=== PATIENT | female | born 1945 | race Hispanic/Latino ===

== ENCOUNTER 2018-11-13 14:15 | Emergency (ER) | payer MEDICARE ==
--- NOTE | 2018-11-13 15:09 | Emergency Department Report ---
ED CPR HPI - General Chief Complaint: Cardiac Arrest/CPR Stated Complaint: CARDIAC ARREST Source: EMS Mode of arrival: Stretcher Limitations: Other - History of Present Illness Initial Comments: This is a 73-year-old female who suffered a cardiac arrest at home. Her tells me on later counseling that she was indeed DO NOT RESUSCITATE. In any case she is transported by EMS after unsuccessful resuscitation. The patient was last seen alive more than a half hour prior to medic arrival. She was found in asystole with no signs of life. She was intubated and received ACLS medications. She had no return of spontaneous circulation or any electrical activity. She arrived at this facility in asystole. MD Complaint: found unresponsive, stopped breathing -: minute(s) (probably greater than 30) Place: home Bystander CPR Performed: No ROSC in the Field: No Associated Injuries: No Treatments Prior to Arrival: intubation, epinephrine mgs #, atropine mgs # - Related Data Home Medications Medication Instructions Recorded Confirmed Last Taken Aspirin [Aspirin TAB] 325 mg PO QDAY 02/28/16 02/28/16 Unknown Atorvastatin Calcium [Lipitor] 20 mg PO QHS 02/28/16 02/28/16 Unknown Fenofibrate Nanocrystallized 48 mg PO DAILY 02/28/16 02/28/16 Unknown [Fenofibrate] Gabapentin [Neurontin] 300 mg PO DAILY PRN 02/28/16 02/28/16 Unknown Insulin Lispro Prot/Lispro 22 units SQ QAM 02/28/16 02/28/16 Unknown [HumaLOG Mix 75/25 Vial] Insulin Lispro Prot/Lispro 42 units SQ QPM 02/28/16 02/28/16 Unknown [HumaLOG Mix 75/25 Vial] Metoprolol Tartrate 50 mg PO DAILY 02/28/16 02/28/16 Unknown Ranitidine HCl [Zantac] 2 tab PO DAILY 02/28/16 02/28/16 Unknown Previous Rx's Medication Instructions Recorded Last Taken Type Famotidine [Pepcid] 20 mg PO BID #60 tablet 03/01/16 Unknown Rx Lisinopril [Zestril TAB] 10 mg PO QDAY #30 tablet 03/01/16 Unknown Rx Allergies Allergy/AdvReac Type Severity Reaction Status Date / Time clopidogrel bisulfate AdvReac Rash Verified 07/21/15 14:50 [From Plavix] ED Review of Systems ROS: Stated complaint: CARDIAC ARREST Other details as noted in HPI Comment: Unobtainable due to pts medical conditions ED Past Medical Hx - Past Medical History Previous Medical History?: Yes Hx Hypertension: Yes Hx CVA: Yes Hx Heart Attack/AMI: Yes Hx Diabetes: Yes Hx GERD: Yes Hx Arthritis: Yes Additional medical history: high cholestrol - Surgical History Past Surgical History?: Yes Hx Coronary Stent: Yes (triple bypass) - Social History Smoking Status: Current Every Day Smoker - Medications Home Medications: Home Medications Medication Instructions Recorded Confirmed Last Taken Type Aspirin [Aspirin TAB] 325 mg PO QDAY 02/28/16 02/28/16 Unknown History Atorvastatin Calcium [Lipitor] 20 mg PO QHS 02/28/16 02/28/16 Unknown History Fenofibrate Nanocrystallized 48 mg PO DAILY 02/28/16 02/28/16 Unknown History [Fenofibrate] Gabapentin [Neurontin] 300 mg PO DAILY PRN 02/28/16 02/28/16 Unknown History Insulin Lispro Prot/Lispro 22 units SQ QAM 02/28/16 02/28/16 Unknown History [HumaLOG Mix 75/25 Vial] Insulin Lispro Prot/Lispro 42 units SQ QPM 02/28/16 02/28/16 Unknown History [HumaLOG Mix 75/25 Vial] Metoprolol Tartrate 50 mg PO DAILY 02/28/16 02/28/16 Unknown History Ranitidine HCl [Zantac] 2 tab PO DAILY 02/28/16 02/28/16 Unknown History Famotidine [Pepcid] 20 mg PO BID #60 tablet 03/01/16 Unknown Rx Lisinopril [Zestril TAB] 10 mg PO QDAY #30 tablet 03/01/16 Unknown Rx ED Physical Exam - General Limitations: Other General appearance: other (extremely pale) - Head Head exam: Present: atraumatic - Neck Neck exam: Present: normal inspection - Respiratory Respiratory exam: Present: normal lung sounds bilaterally (with Ambu bag assist) - Cardiovascular Cardiovascular Exam: Present: other (asystole) - GI/Abdominal GI/Abdominal exam: Absent: soft, distended - Extremities Exam Extremities exam: Present: other (amputation) - Back Exam Back exam: Present: other (not visualized) - Neurological Exam Neurological exam: Present: other (GCS of 3) ED Course - Reevaluation(s) Reevaluation #1: Patient with prolonged resuscitative effort and no return of spontaneous circulation. She was pronounced DOA. Further resuscitation was not indicated. In retrospect, according to the she was DO NOT RESUSCITATE 11/13/18 15:08 Critical care attestation.: If time is entered above; I have spent that time in minutes in the direct care of this critically ill patient, excluding procedure time. ED Disposition Clinical Impression: Cardiac arrest Disposition: DC-20 Is pt being admited?: No Does the pt Need Aspirin: No Condition: Stable Referrals: PRIMARY CARE, [Primary Care Provider] - 3-5 Days Time of Disposition: 14:10
== END 2018-11-13 19:36 ==
LOC: ED 14:15
DX: I46.9 Cardiac arrest, cause unspecified (principal); I10 Essential (primary) hypertension; E11.9 Type 2 diabetes mellitus without complications; K21.9 Gastro-esophageal reflux disease without esophagitis; M19.90 Unspecified osteoarthritis, unspecified site; E78.00 Pure hypercholesterolemia, unspecified; F17.200 Nicotine dependence, unspecified, uncomplicated; Z95.1 Presence of aortocoronary bypass graft; Z79.82 Long term (current) use of aspirin; Z79.4 Long term (current) use of insulin; Z88.8 Allergy status to other drugs, medicaments and biological substances
CPT/HCPCS: 99285